=== PATIENT | female | born 1965 | race Caucasian/White ===

== ENCOUNTER → 2017-11-23 | Day surgery (SDC) | payer BC ==
[2017-11-23 13:36] VITALS: RESP 16; BMI 35.2
[2017-11-23 15:05] VITALS: BP 128/75; PULSE 80; TEMP 98
--- NOTE | 2017-11-23 15:29 | MM ---
EXAMINATION TYPE: MG stereo VAD BX LT DATE OF EXAM: 11/23/2017 COMPARISON: Prior diagnostic mammogram dated 11/16/2017 CLINICAL HISTORY: 1.1 cm group of indeterminate calcifications within the upper outer quadrant of the left breast at middle depth for which stereotactic biopsy was recommended. TECHNIQUE: Stereotactic guided core biopsy of left breast. FINDINGS: The procedure of stereotactic guided core biopsy was explained to the patient. Benefits, alternatives, and risks were discussed. An informed consent was then obtained. A preprocedural timeout was performed. The shortness pathway for biopsy was chosen. Shortness pathway was lateral medial approach. . Targeted calcifications were localized. Subcutaneous tissues and skin surface was anesthetized with 10 cc of 1% lidocaine without epinephrine. The core biopsy needle was advanced to the appropriate calculated coordinates an additional 10 cc of 1% lidocaine with epinephrine was utilized to anesthetize the deeper tissues at the site of biopsy. Subsequently a vacuum assisted biopsy gun was used to obtain 12 core samples. After confirmation of calcifications within the specimen radiograph a T-shaped biopsy marker was placed. The patient tolerated the procedure well without any immediate complication. The patient was kept in the radiology department for short stay after the procedure and then discharged home in stable condition. Post biopsy mammogram shows the clip to appear in satisfactory position relative to the targeted area of concern on the preprocedure images. IMPRESSION: SUCCESSFUL, UNCOMPLICATED STEREOTACTIC GUIDED CORE BIOPSY OF A 1.1 CM GROUP OF INTERMEDIATE SUSPICION CALCIFICATIONS WITHIN THE UPPER OUTER QUADRANT OF THE LEFT BREAST, FULL PATHOLOGY RESULTS TO FOLLOW. Pathology Results: High Risk BREAST, LEFT SITE A, CORE BIOPSY: PENDING CONSULTATION, SEE ADDENDUM/FINAL DIAGNOSIS. ADDENDUM REPORT BREAST, LEFT, SITE A, STEREOTACTIC CORE BIOPSY ([id number]; 11/23/2017): SMALL INTRADUCTAL PAPILLOMA (LESS THAN 0.1 CM IN GREATEST DIMENSION) IN A BACKGROUND OF FIBROCYSTIC CHANGES INCLUDING COLUMNAR CELL CHANGE. CALCIFICATIONS ARE PRESENT WITHIN BENIGN DUCTS. Recommendation Surgical consult. Consider open biopsy. [facility]
== END ==
LOC: RADMAMWWP 13:17
PROVIDERS: ATTEND Surgery
DX: D24.2 Benign neoplasm of left breast (principal); Z91.09 Other allergy status, other than to drugs and biological substances; R92.1 Mammographic calcification found on diagnostic imaging of breast; Z91.030 Bee allergy status; Z91.041 Radiographic dye allergy status; Z91.012 Allergy to eggs; Z88.5 Allergy status to narcotic agent; Z91.013 Allergy to seafood
CPT/HCPCS: 88305; 19081; A4648; J2001

== ENCOUNTER → 2018-06-20 | Outpatient (CLI) | payer BC ==
--- NOTE | 2018-06-20 12:43 | MM ---
Reason for exam: follow-up at short interval from prior study. Last mammogram was performed 7 months ago. History: Patient is postmenopausal and has history of high-risk lesion on a previous biopsy at age 52. Family history of premenopausal breast cancer in paternal aunt at age 40 and premenopausal breast cancer in maternal aunt at age 42. High risk MG stereo VAD BX LT of the left breast, November 23, 2017. Physical Findings: Nurse did not find any significant physical abnormalities on exam. MG 3D Diag Mammo W/Cad LT CC and MLO view(s) were taken of the left breast. Prior study comparison: November 16, 2017, left breast MG 3d work up w/cad LT. November 08, 2017, bilateral MG 3d screening mammo w/cad. The breast tissue is heterogeneously dense. This may lower the sensitivity of mammography. Finding: There is a typically benign circumscribed round oval masses in the left breast, similar to priors. No suspicious abnormality. Upper outer quadrant left biopsy marker noted. These results were verbally communicated with the patient and result sheet given to the patient on 06/20/18. ASSESSMENT: Benign, BI-RAD 2 RECOMMENDATION: Follow-up diagnostic mammogram of both breasts in 6 months.
--- NOTE | 2018-06-20 12:45 | USB ---
Reason for exam: follow-up at short interval from prior study. History: Patient is postmenopausal and has history of high-risk lesion on a previous biopsy at age 52. Family history of premenopausal breast cancer in paternal aunt at age 40 and premenopausal breast cancer in maternal aunt at age 42. High risk MG stereo VAD BX LT of the left breast, November 23, 2017. US Breast LT Left complete breast ultrasound includes all four quadrants, the retroareolar region and axilla. Finding demonstrates a 0.7 x 0.2 x 0.7cm mixed, stable, benign lesion at 1 o'clock, a 1.4 x 0.5 x 1.5cm cystic cluster at 4 o'clock, a 0.7 x 0.5 x 0.7cm cystic cluster at 4 o'clock, a 0.8 x 0.5 x 0.8cm cystic cluster at 5 o'clock and a 0.7 x 0.6 x 1.0cm cystic, benign lesion at 6 o'clock. These results were verbally communicated with the patient and result sheet given to the patient on 06/20/18. ASSESSMENT: Probably benign, BI-RAD 3 RECOMMENDATION: Ultrasound of the left breast in 6 months. (lower inner quadrant)
== END | disposition home or self-care (01) ==
LOC: RADMAMWWP 08:55
PROVIDERS: ATTEND Surgery
DX: R92.8 Other abnormal and inconclusive findings on diagnostic imaging of breast (principal)
CPT/HCPCS: 77061; 77065

== ENCOUNTER → 2018-07-10 | Outpatient (CLI) | payer BC ==
[2018-07-10 09:57] LABS: Basophils % (A) 0 %; Eosinophils # (A) 0.2 k/uL (0-0.7); Eosinophils % (A) 3 %; HCT 44.5 % (34.0-46.0); HGB 14.7 gm/dL (11.4-16.0); Lymphocytes # (A) 2.1 k/uL (1.0-4.8); Lymphocytes % (A) 25 %; MCH 29.5 pg (25.0-35.0); MCV 89.4 fL (80.0-100.0); Mean Platelet Volume 7.3; Monocytes # (A) 0.5 k/uL (0-1.0); Monocytes % (A) 6 %; Neutrophils # (A) 5.4 k/uL (1.3-7.7); Neutrophils % (A) 66 %; Platelet Count 352 k/uL (150-450); RBC 4.98 m/uL (3.80-5.40); RDW 13.1 % (11.5-15.5); WBC 8.2 k/uL (3.8-10.6)
== END | disposition home or self-care (01) ==
LOC: LABPAT 09:09
PROVIDERS: ATTEND Orthopaedic Surgery
DX: Z01.818 Encounter for other preprocedural examination (principal); Z01.812 Encounter for preprocedural laboratory examination; G56.01 Carpal tunnel syndrome, right upper limb
CPT/HCPCS: 36415; 80051; 85025; 93005

== ENCOUNTER 2018-07-12 09:40 | Day surgery (SDC) | payer BC ==
[2018-07-04 15:10] VITALS: BMI 37.4
--- NOTE | 2018-07-11 16:01 | HP ---
HISTORY AND PHYSICAL REASON FOR ADMISSION: Surgery scheduled for 07/12/18. Gabby Garland is a 53-year-old patient seen with progressive right carpal tunnel syndrome. Treatment options were discussed. She elected to proceed with decompression of right median nerve. Consent was obtained. PAST MEDICAL HISTORY: Hypothyroidism. PAST SURGICAL HISTORY: Noncontributory. MEDICATIONS: Levothyroxine. ALLERGIES: MORPHINE. SOCIAL HISTORY: Patient denies current tobacco use. PHYSICAL EXAMINATION: Physical evaluation of the right hand: There is a positive carpal compression, carpal Tinel's causing numbness and tingling to the median nerve distribution. She is nontender along the A1 adrianne site. She had decreased sensation distally along the median nerve distribution. There is good pulses and good perfusion distally. Radiographs were obtained right hand revealing some osteoarthritic changes. EMG right upper extremity revealed carpal tunnel syndrome. IMPRESSION: 1. Right carpal tunnel syndrome. 2. Hypothyroidism. PLAN: Decompression right median nerve. Surgery scheduled for 07/12/2018. MMODL / IJN: [id number] /
[~2018-07-12 09:40] MED LIST: DEXAMETHASONE SOD PHOSPHATE 10 MG/ML 1 ML VIAL IV ONE; LACTATED RINGERS 1,000 ML IV SCH; LIDOCAINE 1% 20 ML VIAL (10MG/ML) FOR IV START INTRADERMA PRN; MIDAZOLAM 2 MG/2 ML VIAL IV PRN; ONDANSETRON 4 MG/2 ML VIAL IVP ONE; ceFAZolin IN SWFI 2 GM/20 ML SYRINGE IVP ONE
[2018-07-12 10:02] VITALS: TEMP 98
[2018-07-12] MEDS ORDERED: LACTATED RINGERS 1,000 ML IV ONE (10:23)
[2018-07-12] MEDS ORDERED: fentaNYL (PF) 50 MCG/ML 2 ML AMP ONE (10:45)
[2018-07-12] MEDS ORDERED: MIDAZOLAM 2 MG/2 ML VIAL ONE (10:45)
[2018-07-12] MEDS ORDERED: PROPOFOL 10 MG/ML 20 ML VIAL IV ONE (10:45)
[2018-07-12] MEDS ORDERED: LIDOCAINE 1% INJ 10MG/ML (20 ML MDV) ONE (10:45)
[2018-07-12] MEDS ORDERED: ROPIVACAINE 5 MG/ML 30 ML VIAL MISCELLANE ONE (11:01)
--- NOTE | 2018-07-12 11:30 | P.OP ---
Date of Procedure: 07/12/18 Preoperative Diagnosis: Right carpal tunnel syndrome Postoperative Diagnosis: Right carpal tunnel syndrome Procedure(s) Performed: Decompression right median nerve Anesthesia: AMBER local Surgeon: Jere Clay Estimated Blood Loss (ml): 0 Pathology: none sent Condition: stable Disposition: PACU Indications for Procedure: 53-year-old patient seen with symptomatic right carpal tunnel syndrome. After treatment options were discussed, she elected to proceed with decompression. Operative Findings: see description of procedure Description of Procedure: Patient was taken to the operative suite. Patient underwent anesthetic by the primary a seizure. Well-padded tourniquet placed proximal right extremity. Right upper extremity was prepped and draped in the normal sterile orthopedic fashion. The proposed incision site was infiltrated with 10 mL half percent plain ropivacaine. When good local analgesia was noted the extremity was elevated and tourniquet insufflated to 250. I made an incision beginning at the distal volar wrist crease and extended distally approximately 3 cm in line with the fourth metacarpal sharply through skin. Dissection was taken down through the palmar fascia to the transverse carpal ligament. I now incised the transcarpal ligament. I completed the release proximally and distally blunt Metzenbaums. We had good release of transcarpal ligament. The wound was irrigated. Hemostasis achieved with electrocautery. There was good hemostasis. The skin margins were proximal nylon suture. Sterile dressings were applied. Tourniquet was released with immediate capillary refill of all digits noted. Sterile webril and Driss bandage were applied. Patient was now awakened, transferred to a bed and recovery stable condition.
[2018-07-12 11:38] VITALS: BP 122/79; PULSE 82; RESP 16
== END 2018-07-12 12:00 | disposition home or self-care (01) ==
LOC: OR 09:40
PROVIDERS: ATTEND Orthopaedic Surgery
DX: G56.01 Carpal tunnel syndrome, right upper limb (principal); E03.9 Hypothyroidism, unspecified; F17.210 Nicotine dependence, cigarettes, uncomplicated; K21.9 Gastro-esophageal reflux disease without esophagitis; Z88.5 Allergy status to narcotic agent; Z91.041 Radiographic dye allergy status; Z91.048 Other nonmedicinal substance allergy status; Z79.1 Long term (current) use of non-steroidal anti-inflammatories (NSAID); Z79.899 Other long term (current) drug therapy
CPT/HCPCS: 64721; J2250; J1100; J2405; J2001; J3010; J2795; J2704; J0690

== ENCOUNTER 2018-09-25 09:09 | Emergency (ER) | payer BC ==
[2018-09-25] MEDS ORDERED: ONDANSETRON 4 MG/2 ML VIAL IVP STA (09:45)
[2018-09-25] MEDS ORDERED: SODIUM CHLORIDE 0.9% 1,000 ML IV STA ×2 (09:45)
[2018-09-25] MEDS ORDERED: ACETAMINOPHEN IV (For NPO) 1,000 MG in EMPTY BAG 1 BAG IVPB ONE (10:00)
[2018-09-25 10:50] LABS: Basophils % (A) 0 %; Eosinophils # (A) 0.1 k/uL (0-0.7); Eosinophils % (A) 1 %; HCT 45.4 % (34.0-46.0); HGB 14.6 gm/dL (11.4-16.0); Lymphocytes # (A) 2.7 k/uL (1.0-4.8); Lymphocytes % (A) 28 %; MCHC 32.1 g/dL (31.0-37.0); MCV 90.5 fL (80.0-100.0); Mean Platelet Volume 6.5; Monocytes # (A) 0.4 k/uL (0-1.0); Monocytes % (A) 4 %; Neutrophils # (A) 6.5 k/uL (1.3-7.7); Neutrophils % (A) 66 %; Platelet Count 379 k/uL (150-450); RBC 5.02 m/uL (3.80-5.40); RDW 13.2 % (11.5-15.5); WBC 9.9 k/uL (3.8-10.6)
[2018-09-25 10:53] LABS: Appearance,Urine Clear (Clear); Bilirubin,Urine Negative (Negative); Blood,Urine Negative (Negative); Color,Urine Light Yellow; Glucose,Urine (UA) Negative (Negative); Ketones,Urine Negative (Negative); Leukocyte Esterase,Urine Negative (Negative); Nitrite,Urine Negative (Negative); Protein,Urine Negative (Negative); Specific Gravity,Urine 1.006 (1.001-1.035); Urobilinogen,Urine <2.0 mg/dL (<2.0)
[2018-09-25 10:58] LABS: ALT 30 U/L (9-52); AST 16 U/L (14-36); Albumin 3.9 g/dL (3.5-5.0); Alkaline Phosphatase 104 U/L (38-126); Amylase 31 U/L (30-110); Anion Gap 6 mmol/L; Blood Urea Nitrogen 16 mg/dL (7-17); Calcium 9.5 mg/dL (8.4-10.2); Carbon Dioxide 28 mmol/L (22-30); Chloride 106 mmol/L (98-107); Glucose 123 mg/dL (74-99); Lipase 73 U/L (23-300); Potassium 4.5 mmol/L (3.5-5.1); Sodium 140 mmol/L (137-145); Total Bilirubin 0.4 mg/dL (0.2-1.3)
[2018-09-25] MEDS ORDERED: diphenhydrAMINE 50 MG/ML 1 ML VIAL IVP STA (11:13)
[2018-09-25] MEDS ORDERED: methylPREDNISolone SOD SUCCI 125 MG/2 ML VIAL IV STA (11:13)
[2018-09-25] MEDS ORDERED: FAMOTIDINE 20 MG/2 ML VIAL IV STA (11:14)
[2018-09-25] MEDS ORDERED: HYDROcodone/APAP 5-325MG 1 EACH TAB PO STA ×2 (12:10→15:27)
--- NOTE | 2018-09-25 12:35 | CT ---
EXAMINATION TYPE: CT abdomen pelvis w con DATE OF EXAM: 09/25/2018 COMPARISON: NONE HISTORY: 53-year-old female with history of GERD. Pt complaining of LLQ pain starting this morning, w ith nausea. TECHNIQUE: Contiguous axial scanning of the abdomen and pelvis following administration of 100 ml Iso khang 300 IV contrast. Delayed images through the kidneys and coronal/sagittal reconstructions perform ed. CT DLP: 1197.7 mGycm Automated exposure control for dose reduction was used. FINDINGS: Heart normal size without pericardial effusion. Scattered calcified granulomas in the visualized lowe r lungs with mild dependent atelectasis. Liver measures mildly enlarged at 19.2 cm. No focal lesion seen. Portal venous system is patent. Bile duct borderline to mildly dilated at 8 mm. There is a small diverticulum of the second portion o f the duodenum projecting into the pancreatic head region. Gallbladder borderline hydropic at 4.0 cm wide with a few gallstones measuring up to 1.7 cm Right adrenal gland, kidneys, spleen, and pancreas appear within normal limits. Some nodular thickeni ng of the left adrenal gland may represent underlying adrenal adenoma. No dilated small bowel, free fluid, or free air. Borderline sized 9 mm right paramedian mid abdominal retroperitoneal or mesenteric lymph node is noted on axial image 46. Otherwise, no mesenteric or ret roperitoneal lymphadenopathy. Normal appendix. There is mild stool burden in the right side of colon. Mild diverticulosis from the mid descending colon to the mid sigmoid. No pericolonic inflammatory change seen. Question prior hysterectomy with a large septated cystic pelvic mass measuring 16.4 cm AP by 10.2 cm wide by 8.4 cm craniocaudal, refer to axial image 64 and sagittal image 72. Possibly from the left ov koffi as what appears to be the right ovary is seen on axial image 64. Some slight left lateral wall so ft tissue thickening, coronal image 64 and axial image 68. No abnormal fluid collection otherwise see n in the pelvis or pelvic lymphadenopathy. Bones: Mild multilevel degenerative disc disease. IMPRESSION: 1. CORRELATE WITH SURGICAL HISTORY FOR PRIOR HYSTERECTOMY. THERE IS A LARGE CYSTIC MASS MEASURING UP TO 16.4 CM FILLING THE PELVIS POSSIBLY OF LEFT OVARIAN ORIGIN. SUGGESTION OF INTERNAL SEPTATION AND E ITHER SOME LEFT LATERAL MURAL-BASED SOFT TISSUE THICKENING OR FLATTENED OVARIAN PARENCHYMA. CYSTIC EP ITHELIAL OVARIAN NEOPLASM IS IN THE DIFFERENTIAL. PELVIC ULTRASOUND CAN ATTEMPT FURTHER CHARACTERIZAT ION. SURGICAL REFERRAL IS RECOMMENDED. 2. BORDERLINE HYDROPIC GALLBLADDER AT 4.0 CM WIDE WITH CHOLELITHIASIS. GALLBLADDER DISTENTION MAY REL ATE TO FASTING STATE. CLINICALLY CORRELATE. IF RIGHT UPPER QUADRANT PAIN OR CONCERN FOR EARLY ACUTE C HOLECYSTITIS, FOLLOW-UP ULTRASOUND OR HIDA SCAN. 3. MILD SCATTERED LEFT-SIDED COLONIC DIVERTICULOSIS. NO EVIDENCE FOR ACUTE DIVERTICULITIS.
--- NOTE | 2018-09-25 13:43 | US ---
EXAMINATION TYPE: US pelvis complete transvag DATE OF EXAM: 09/25/2018 COMPARISON: ct CLINICAL HISTORY: Pain. TECHNIQUE: Transvaginal (TV) and Transabdominal (TA) . Transabdominal sonographic images of the pel vis were acquired. Transabdominal sonographic images were medically necessary to better assess the f ollowing anatomy: ovary Date of LMP: patient had hysterectomy 10-15 years prior EXAM MEASUREMENTS: Uterus: Surgically absent Endometrial Stripe: Surgically absent Right Ovary: not positively identified Left Ovary: not positively identified 1. Uterus: Surgically absent 2. Endometrium: Surgically absent 3. Posterior cul-de-sac: wnl Midline there is a large cystic structure, this appears more right by ultrasound, although right ovar y is not visualized by ultrasound. Cystic structure measures 16.5 x 7.9 x 10.1cm IMPRESSION: 1. Large nonspecific midline cystic structure within the pelvis may reflect a paraAdnexal cyst. Cysti c neoplasm not excluded. Consider direct visualization or short-term follow-up.
--- NOTE | 2018-09-25 14:17 | ED ---
Abdominal Pain HPI <Reza Torrez - Last Filed: 09/25/18 15:22> - General Source: patient, RN notes reviewed, old records reviewed Mode of arrival: ambulatory Limitations: no limitations <Jose Lewis - Last Filed: 09/25/18 17:10> - General Chief Complaint: Abdominal Pain Stated Complaint: Left lower abd pain - History of Present Illness Initial Comments: 53-year-old female patient presents to ED with left lower quadrant abdominal pain. Patient states that the pain began today at approximately 7 AM it began as a crampy achy pain since progressed to a sharp stabbing pain. The patient tried taking Advil for the pain, without relief. The patient has not taken any other palliative measures. Patient additionally complained of nausea without emesis. Denies all other complaints. Patient denies fever or chills or diarrhea. Systemic: Pt denies fatigue, myalgia, fever/chills, rash. Pt denies weakness, night sweats, weight loss. Neuro: Pt denies headache, visual disturbances, syncope or pre-syncope. HEENT: Pt denies ocular discharge or irritation, otalgia, rhinorrhea, pharyngitis or notable lymphadenopathy. Cardiopulmonary: Pt denies chest pain, SOB, heart palpitations, dyspnea on exertion. Abdominal/GI: Pt denies vomiting, diarrhea : Pt denies dysuria, burning w/ urination, frequency/urgency. Denies new onset urinary or bowel incontinence. MSK: Pt denies myalgia, loss of strength or function in extremities. (Jose Lewis) - Related Data Home Medications Medication Instructions Recorded Confirmed Levothyroxine Sodium [Synthroid] 50 mcg PO DAILY 04/23/15 09/25/18 Venlafaxine HCl [Venlafaxine HCl 75 mg PO DAILY 04/23/15 09/25/18 ER] Naproxen 500 mg PO DAILY 11/16/17 09/25/18 Benzoyl Peroxide [Benzac AC Wash] 1 applic TOPICAL BID 09/25/18 09/25/18 Fluocinonide 0.05% [Lidex 0.05% 1 applic TOPICAL BID 09/25/18 09/25/18 cream] Hydrocortisone Cream 1 applic TOPICAL BID 09/25/18 09/25/18 [Hydrocortisone 2.5% Cream] Allergies Allergy/AdvReac Type Severity Reaction Status Date / Time bee pollen Allergy Anaphylaxis Verified 09/25/18 10:00 Iodinated Contrast- Oral and Allergy Rash/Hives Verified 09/25/18 10:00 IV Dye [Iodinated Contrast Media - IV Dye] morphine Allergy Anaphylaxis Verified 09/25/18 10:00 nickel Allergy Rash/Hives Verified 09/25/18 10:00 Pepper Allergy Unknown Verified 09/25/18 10:00 shellfish derived [Shellfish] Allergy Dyspnea Verified 09/25/18 10:00 tomato Allergy Unknown Verified 09/25/18 10:00 adhesive AdvReac skin Verified 09/25/18 10:00 irritation Egg Derived AdvReac Abdominal Verified 09/25/18 10:00 Pain Review of Systems ROS Other: All systems not noted in ROS Statement are negative. <Reza Torrez - Last Filed: 09/25/18 15:22> ROS Other: All systems not noted in ROS Statement are negative. <Jose Lewis - Last Filed: 09/25/18 17:10> ROS Statement: Those systems with pertinent positive or pertinent negative responses have been documented in the HPI. Past Medical History Past Medical History: GERD/Reflux, Osteoarthritis (OA), Skin Disorder, Thyroid Disorder Additional Past Medical History / Comment(s): eczema, hx. heart murmur as a child, hiatal hernia History of Any Multi-Drug Resistant Organisms: None Reported Past Surgical History: Section, Hysterectomy, Orthopedic Surgery Additional Past Surgical History / Comment(s): neck fusion, right shoulder surg. , right knee sx Past Anesthesia/Blood Transfusion Reactions: No Reported Reaction Past Psychological History: Depression Smoking Status: Current every day smoker Past Alcohol Use History: None Reported Past Drug Use History: None Reported - Past Family History Mother Family Medical History: Cancer <Jose Lewis - Last Filed: 09/25/18 17:10> General Exam <Reza Torrez - Last Filed: 09/25/18 15:22> Limitations: no limitations <Jose Lewis - Last Filed: 09/25/18 17:10> - General Exam Comments Initial Comments: Constitutional: NAD, AOX3, Pt has pleasant affect. HEENT: NC/AT, trachea midline, neck supple, no lymphadenopathy. Posterior pharynx non erythematous, without exudates. External ears appear normal, without discharge. Mucous membranes moist. Eyes PERRLA, EOM intact. There is no scleral icterus. No pallor noted. Cardiopulmonary: RRR, no murmurs, rubs or gallops, no JVD noted. Lungs CTAB in anterior and posterior baker. No peripheral edema. Abdominal exam: Abdomen soft and non-distended. Bowel sounds active in LLQ. Abdomen tender to palpation in LLQ, no ecchymosis, no cullens or latif head sign, no tenderness at mcburneys point. [place] sign negative. No hepatosplenomegaly. Neuro: CN II-XII grossly intact. (Jose Lewis) Vital Signs 09/25/18 09/25/18 09/25/18 09:15 14:07 14:08 Temperature 98.1 F 97.4 F L Pulse Rate 88 71 Respiratory 20 16 Rate Blood Pressure 145/73 135/72 O2 Sat by Pulse 98 92 L 95 Oximetry Medical Decision Making - Lab Data Result diagrams: 09/25/18 10:20 09/25/18 10:20 <Reza Torrez - Last Filed: 09/25/18 15:22> - Lab Data Result diagrams: 09/25/18 10:20 09/25/18 10:20 <Jose Lewis - Last Filed: 09/25/18 17:10> - Medical Decision Making Patient reevaluated by myself, Dr. Torrez. Patient resting comfortably in bed however still complains of some discomfort. Patient does have suprapubic tenderness, mild to moderate. CT and ultrasound reports reviewed. Patient is updated. Case was discussed with Dr. Davila, covering for Dr. Bah with the patient has previously seen. She does recommend transfer to tertiary care facility, likely [facility] or [facility] (Reza Torrez) 53-year-old female patient presented to emergency department with acute left lower quadrant pain, which began earlier in day. Physical exam displayed tenderness to the left lower quadrant. Investigations of intra-abdominal pathology were conducted. These included labs: CBC, CMP, amylase/lipase, lactic acid - none of which were indicative of acute pathology. Additionally, a EKG was performed. This EKG displayed normal sinus rhythm, and was not worrisome for acute ischemia. A CT abdomen and pelvis was performed, which displayed a large cystic mass measuring up to 16.4 cm in the pelvis. The CT also displayed a borderline borderline hydropic gallbladder, clinical correlation not concerning for cholecystitis. CT additionally displayed mild scattered left-sided colonic diverticulosis, no diverticulitis. A pelvic ultrasound was performed which confirmed the pelvic cystic mass. Decision was made to transfer patient to [facility]. (Jose Lewis) - Lab Data Lab Results 09/25/18 09/25/18 09/25/18 Range/Units 10:20 10:20 10:20 WBC 9.9 (3.8-10.6) k/uL RBC 5.02 (3.80-5.40) m/uL Hgb 14.6 (11.4-16.0) gm/dL Hct 45.4 (34.0-46.0) % MCV 90.5 (80.0-100.0) fL MCH 29.0 (25.0-35.0) pg MCHC 32.1 (31.0-37.0) g/dL RDW 13.2 (11.5-15.5) % Plt Count 379 (150-450) k/uL Neutrophils % 66 % Lymphocytes % 28 % Monocytes % 4 % Eosinophils % 1 % Basophils % 0 % Neutrophils # 6.5 (1.3-7.7) k/uL Lymphocytes # 2.7 (1.0-4.8) k/uL Monocytes # 0.4 (0-1.0) k/uL Eosinophils # 0.1 (0-0.7) k/uL Basophils # 0.0 (0-0.2) k/uL Sodium 140 (137-145) mmol/L Potassium 4.5 (3.5-5.1) mmol/L Chloride 106 (98-107) mmol/L Carbon Dioxide 28 (22-30) mmol/L Anion Gap 6 mmol/L BUN 16 (7-17) mg/dL Creatinine 0.72 (0.52-1.04) mg/dL Est GFR (CKD-EPI)AfAm >90 (>60 ml/min/1.73 sqM) Est GFR (CKD-EPI)NonAf >90 (>60 ml/min/1.73 sqM) Glucose 123 H (74-99) mg/dL Plasma Lactic Acid Adal 0.9 (0.7-2.0) mmol/L Calcium 9.5 (8.4-10.2) mg/dL Total Bilirubin 0.4 (0.2-1.3) mg/dL AST 16 (14-36) U/L ALT 30 (9-52) U/L Alkaline Phosphatase 104 (38-126) U/L Total Protein 7.0 (6.3-8.2) g/dL Albumin 3.9 (3.5-5.0) g/dL Amylase 31 (30-110) U/L Lipase 73 (23-300) U/L Urine Color Urine Appearance (Clear) Urine pH (5.0-8.0) Ur Specific Anderson (1.001-1.035) Urine Protein (Negative) Urine Glucose (UA) (Negative) Urine Ketones (Negative) Urine Blood (Negative) Urine Nitrite (Negative) Urine Bilirubin (Negative) Urine Urobilinogen (<2.0) mg/dL Ur Leukocyte Esterase (Negative) Urine HCG, Qual (Not Detectd) 09/25/18 09/25/18 Range/Units 10:20 10:20 WBC (3.8-10.6) k/uL RBC (3.80-5.40) m/uL Hgb (11.4-16.0) gm/dL Hct (34.0-46.0) % MCV (80.0-100.0) fL MCH (25.0-35.0) pg MCHC (31.0-37.0) g/dL RDW (11.5-15.5) % Plt Count (150-450) k/uL Neutrophils % % Lymphocytes % % Monocytes % % Eosinophils % % Basophils % % Neutrophils # (1.3-7.7) k/uL Lymphocytes # (1.0-4.8) k/uL Monocytes # (0-1.0) k/uL Eosinophils # (0-0.7) k/uL Basophils # (0-0.2) k/uL Sodium (137-145) mmol/L Potassium (3.5-5.1) mmol/L Chloride (98-107) mmol/L Carbon Dioxide (22-30) mmol/L Anion Gap mmol/L BUN (7-17) mg/dL Creatinine (0.52-1.04) mg/dL Est GFR (CKD-EPI)AfAm (>60 ml/min/1.73 sqM) Est GFR (CKD-EPI)NonAf (>60 ml/min/1.73 sqM) Glucose (74-99) mg/dL Plasma Lactic Acid Adal (0.7-2.0) mmol/L Calcium (8.4-10.2) mg/dL Total Bilirubin (0.2-1.3) mg/dL AST (14-36) U/L ALT (9-52) U/L Alkaline Phosphatase (38-126) U/L Total Protein (6.3-8.2) g/dL Albumin (3.5-5.0) g/dL Amylase (30-110) U/L Lipase (23-300) U/L Urine Color Light Yellow Urine Appearance Clear (Clear) Urine pH 7.0 (5.0-8.0) Ur Specific Anderson 1.006 (1.001-1.035) Urine Protein Negative (Negative) Urine Glucose (UA) Negative (Negative) Urine Ketones Negative (Negative) Urine Blood Negative (Negative) Urine Nitrite Negative (Negative) Urine Bilirubin Negative (Negative) Urine Urobilinogen <2.0 (<2.0) mg/dL Ur Leukocyte Esterase Negative (Negative) Urine HCG, Qual Not Detected (Not Detectd) - EKG Data EKG Comments: Normal sinus rhythm. Mild amount of artifact present. Ventricular rate 77, MD interval 146, QRS 96, QT 414, QTC 468. Not concerning for acute ischemia. ( Jose Lewis) Disposition <Reza Torrez - Last Filed: 09/25/18 15:22> Is patient prescribed a controlled substance at d/c from ED?: No - Out of Hospital Transfer - Req. Specs Out of Hospital Transfer - Requested Specifics: Other Non-Acute ([facility]) <Jose Lewis - Last Filed: 09/25/18 17:10> Clinical Impression: Pelvic cyst Disposition: OTHER INSTITUTION NOT DEFINED Condition: Good Instructions: Pelvic Pain in Women (ED) Additional Instructions: Pt transferred to [facility] to continue acute care. Referrals: Ulises León DO [Primary Care Provider] - 1-2 days
[2018-09-25] MEDS ORDERED: NICOTINE 14MG/24HR PATCH TRANSDERM STA (16:27)
[2018-09-25 17:07] VITALS: BP 159/84; TEMP 97.6
[2018-09-25 18:38] VITALS: PULSE 80; RESP 16
== END 2018-09-25 18:55 | disposition other institution (70) ==
LOC: EC 09:09
DX: N94.89 Other specified conditions associated with female genital organs and menstrual cycle (principal); K57.90 Diverticulosis of intestine, part unspecified, without perforation or abscess without bleeding; M19.90 Unspecified osteoarthritis, unspecified site; E07.9 Disorder of thyroid, unspecified; F32.9 Major depressive disorder, single episode, unspecified; F17.200 Nicotine dependence, unspecified, uncomplicated; Z90.710 Acquired absence of both cervix and uterus; Z79.899 Other long term (current) drug therapy; Z79.1 Long term (current) use of non-steroidal anti-inflammatories (NSAID); Z79.52 Long term (current) use of systemic steroids; Z91.048 Other nonmedicinal substance allergy status; Z91.041 Radiographic dye allergy status; Z88.5 Allergy status to narcotic agent; Z91.018 Allergy to other foods; Z91.013 Allergy to seafood; Z91.012 Allergy to eggs
CPT/HCPCS: 99285; 96365; 96375 ×4; 96361 ×7; 93005; 36415; 80053; 82150; 83605; 83690; 85025; 81003; 81025; 76856; 76830; 74177; S4990; J1200; J2930; J2405; J0131; Q9967

== ENCOUNTER → 2019-01-12 | Outpatient (CLI) | payer BC ==
--- NOTE | 2019-01-12 14:29 | MM ---
Reason for exam: additional evaluation requested from prior study. Last mammogram was performed 7 months ago. History: Patient is postmenopausal and has history of high-risk lesion on a previous biopsy at age 52. Family history of premenopausal breast cancer in paternal aunt at age 40 and premenopausal breast cancer in maternal aunt at age 42. High risk MG stereo VAD BX LT of the left breast, November 23, 2017. Physical Findings: Nurse did not find any significant physical abnormalities on exam. MG 3D Diag Mammo W/Cad ANNABELLA Bilateral CC and MLO view(s) were taken. Prior study comparison: June 20, 2018, left breast MG 3d diag mammo w/cad LT. November 16, 2017, left breast MG 3d work up w/cad LT. July 17, 2015, mammogram, performed at [facility]. The breast tissue is heterogeneously dense. This may lower the sensitivity of mammography. There are round, oval, circumscribed masses waxing and waning on the left dating back to 2014. No suspicious abnormality. No significant new findings when compared with previous films. These results were verbally communicated with the patient and result sheet given to the patient on 01/12/19. ASSESSMENT: Benign, BI-RAD 2 RECOMMENDATION: Routine screening mammogram of both breasts in 1 year.
--- NOTE | 2019-01-12 14:32 | USB ---
Reason for exam: follow-up at short interval from prior study. History: Patient is postmenopausal and has history of high-risk lesion on a previous biopsy at age 52. Family history of premenopausal breast cancer in paternal aunt at age 40 and premenopausal breast cancer in maternal aunt at age 42. High risk MG stereo VAD BX LT of the left breast, November 23, 2017. US Breast LT Left complete breast ultrasound includes all four quadrants, the retroareolar region and axilla. Finding demonstrates a 0.6 x 0.5 x 0.4cm mixed lesion at 3 o'clock, a 0.8 x 0.4 x 0.4cm mixed lesion at 5 o'clock, a 1.5 x 1.0 x 0.4cm mixed lesion at 5 o'clock, a 0.4 x 0.5 x 0.6cm cystic lesion at 5 o'clock and a 0.6 x 0.7 x 0.5cm cystic lesion at 6 o'clock. Similar to multiple prior exams compared back to 08/16/07. These results were verbally communicated with the patient and result sheet given to the patient on 01/12/19. ASSESSMENT: Benign, BI-RAD 2 RECOMMENDATION: Routine screening mammogram of both breasts in 1 year.
== END | disposition home or self-care (01) ==
LOC: RADMAMWWP 12:38
PROVIDERS: ATTEND Surgery
DX: R92.8 Other abnormal and inconclusive findings on diagnostic imaging of breast (principal)
CPT/HCPCS: 77062; 77066

== ENCOUNTER → 2020-07-31 | Outpatient (CLI) | payer BC ==
--- NOTE | 2020-07-31 10:27 | MM ---
Reason for exam: additional evaluation requested from prior study. Last mammogram was performed 1 year and 7 months ago. History: Patient is postmenopausal and has history of high-risk lesion on a previous biopsy at age 52. Family history of premenopausal breast cancer in paternal aunt at age 40 and premenopausal breast cancer in maternal aunt at age 42. High risk MG stereo VAD BX LT of the left breast, November 23, 2017. Physical Findings: Nurse did not find any significant physical abnormalities on exam. MG 3D Diag Mammo W/Cad ANNABELLA Bilateral CC and MLO view(s) were taken. Prior study comparison: January 12, 2019, bilateral MG 3d diag mammo w/cad ANNABELLA. June 20, 2018, left breast MG 3d diag mammo w/cad LT. November 08, 2017, bilateral MG 3d screening mammo w/cad. There are scattered fibroglandular densities. Previous mammotome biopsy in the left breast. There is chronic nodularity bilaterally fluctuating especially medial left CC view. No significant changes when compared with prior studies. ASSESSMENT: Benign, BI-RAD 2 RECOMMENDATION: Routine screening mammogram of both breasts in 1 year.
--- NOTE | 2020-07-31 12:02 | XR ---
EXAMINATION TYPE: XR chest 2V DATE OF EXAM: 07/31/2020 COMPARISON: Right shoulder radiograph 12/02/2015. HISTORY: 55 year-old female shortness of breath and COPD TECHNIQUE: Frontal and lateral views FINDINGS: ACDF hardware. Heart normal size. Aorta and pulmonary vasculature are within normal limits. Numerous high density scattered following nodules suggesting either prior granulomatous disease or prior heale d viral or fungal infection. No consolidation or pleural effusion. Degenerative changes at the right shoulder. IMPRESSION: Numerous bilateral small calcified pulmonary nodules suggesting either prior granulomatous disease or prior healed viral or fungal infection. Otherwise, no acute process seen.
== END | disposition home or self-care (01) ==
LOC: RADMAMWWP 09:10
PROVIDERS: ATTEND Obstetrics & Gynecology
DX: R92.8 Other abnormal and inconclusive findings on diagnostic imaging of breast (principal); R91.8 Other nonspecific abnormal finding of lung field; J44.9 Chronic obstructive pulmonary disease, unspecified
CPT/HCPCS: 71046; 77062; 77066

== ENCOUNTER → 2020-09-13 | Outpatient (CLI) | payer BC ==
--- NOTE | 2020-09-13 10:25 | MR ---
EXAMINATION TYPE: MR brain wo con DATE OF EXAM: 09/13/2020 COMPARISON: NONE HISTORY: Loss of balance, weakness/numbness, memory loss TECHNIQUE: T1-weighted sagittal, T2, FLAIR, and diffusion axial, and T2 coronal coronal views of the brain are submitted. FINDINGS: There is no evidence of acute ischemia. The ventricles, basal cisterns, and sulci overlying the conv exities are consistent with the patient's age. There is no mass effect. Approximately 5 focal areas of abnormal signal scattered throughout the white matter bilaterally. All measure less than 5 mm and too small to characterize. None are diagnostic of a MS. Craniocervical junction maintained. Sella turcica has a normal appearance. No cerebellopontine angle mass. Orbits are symmetric in appearance. Minimal changes of chronic sinusi tis. IMPRESSION: 1. Minimal nonspecific white matter changes of questionable significance. Migraine headaches, hyperte nsion, remote tiny areas microvascular ischemia or demyelinating process not entirely excluded.
== END | disposition home or self-care (01) ==
LOC: RADMRIMAIN 09:28
PROVIDERS: ATTEND Psychiatry & Neurology Neurology
DX: I67.9 Cerebrovascular disease, unspecified (principal); G43.909 Migraine, unspecified, not intractable, without status migrainosus; I10 Essential (primary) hypertension
CPT/HCPCS: 70551

== ENCOUNTER → 2020-09-15 | Outpatient (CLI) | payer BC ==
[2020-09-15 14:49] LABS: Chol/HDL Ratio 3.86; LDL Cholesterol,Calculated 117.2 mg/dL (0.0-131.0); VLDL Calculation 22.8 mg/dL (5.00-40.00)
== END | disposition home or self-care (01) ==
LOC: LABWHC1 07:33
PROVIDERS: ATTEND Psychiatry & Neurology Neurology
DX: E78.5 Hyperlipidemia, unspecified (principal); R41.3 Other amnesia
CPT/HCPCS: 36415; 80061; 82607; 82747

== ENCOUNTER → 2021-08-14 | Outpatient (CLI) | payer BC ==
--- NOTE | 2021-08-15 04:32 | MR ---
EXAMINATION TYPE: MR shoulder LT wo con DATE OF EXAM: 08/14/2021 COMPARISON: None HISTORY: Left shoulder pain down arm and limited range of movement for 6 months. Multiplanar multiecho imaging of the left shoulder without contrast. There is narrowing of the glenohumeral joint space. The biceps tendon shows some surrounding fluid. T here is some thickening around the biceps tendon superiorly. There is some thickening and increased s ignal in the posterior aspect of the subscapularis tendon. There is 1 cm cystic area in the greater t uberosity of the humerus. There is 1 cm defect in the anterior aspect of the supraspinatus tendon wit h some retraction. There is narrowing of the subacromial joint space. There is spurring at the AC gaston nt and impingement on the supraspinatus tendon and muscle. The glenoid sol appear intact. There is a mild shoulder joint effusion. IMPRESSION: Rotator cuff tear on the anterior aspect of the supraspinatus tendon. There is subacromial joint spac e narrowing and impingement due to spurring at the AC joint. Osteoarthritic narrowing of the glenohum eral joint with small joint effusion. There is evidence for some biceps and subscapularis tendinitis.
== END | disposition home or self-care (01) ==
LOC: RADMRIMAIN 18:58
PROVIDERS: ATTEND Orthopaedic Surgery
DX: M75.112 Incomplete rotator cuff tear or rupture of left shoulder, not specified as traumatic (principal); M19.012 Primary osteoarthritis, left shoulder

== ENCOUNTER → 2021-09-14 | Outpatient (CLI) | payer BC ==
--- NOTE | 2021-09-16 08:03 | MM ---
Reason for exam: screening (asymptomatic). Last mammogram was performed 1 year and 1 month ago. History: Patient is postmenopausal and has history of high-risk lesion on a previous biopsy at age 52. Family history of premenopausal breast cancer in paternal aunt at age 40 and premenopausal breast cancer in maternal aunt at age 42. High risk MG stereo VAD BX LT of the left breast, November 23, 2017. Physical Findings: A clinical breast exam by your physician is recommended on an annual basis and results should be correlated with mammographic findings. MG 3D Screening Mammo W/Cad Bilateral CC and MLO view(s) were taken. Prior study comparison: July 31, 2020, bilateral MG 3d diag mammo w/cad ANNABELLA. January 12, 2019, bilateral MG 3d diag mammo w/cad ANNABELLA. November 08, 2017, bilateral MG 3d screening mammo w/cad. The breast tissue is heterogeneously dense. This may lower the sensitivity of mammography. Previous mammotome biopsy in the left breast. There is chronic nodularity in the left breast. No significant changes when compared with prior studies. ASSESSMENT: Benign, BI-RAD 2 RECOMMENDATION: Routine screening mammogram of both breasts in 1 year.
== END | disposition home or self-care (01) ==
LOC: RADMAMWWP 15:20
PROVIDERS: ATTEND Obstetrics & Gynecology
DX: Z12.31 Encounter for screening mammogram for malignant neoplasm of breast (principal)
CPT/HCPCS: 77063; 77067

== ENCOUNTER → 2021-09-29 | Outpatient (CLI) | payer BC ==
[2021-09-29 15:42] LABS: Basophils % (A) 0 %; Eosinophils # (A) 0.3 k/uL (0-0.7); Eosinophils % (A) 3 %; HCT 41.7 % (34.0-46.0); HGB 13.6 gm/dL (11.4-16.0); Lymphocytes # (A) 2.8 k/uL (1.0-4.8); Lymphocytes % (A) 28 %; MCH 29.9 pg (25.0-35.0); MCHC 32.6 g/dL (31.0-37.0); MCV 91.9 fL (80.0-100.0); Monocytes # (A) 0.4 k/uL (0-1.0); Monocytes % (A) 4 %; Neutrophils # (A) 6.2 k/uL (1.3-7.7); Neutrophils % (A) 63 %; Platelet Count 394 k/uL (150-450); RBC 4.54 m/uL (3.80-5.40); RDW 14.1 % (11.5-15.5); WBC 9.9 k/uL (3.8-10.6)
[2021-09-29 15:49] LABS: Potassium 4.7 mmol/L (3.5-5.1)
== END | disposition home or self-care (01) ==
LOC: LABPAT 15:00
PROVIDERS: ATTEND Orthopaedic Surgery
DX: Z01.812 Encounter for preprocedural laboratory examination (principal); M75.42 Impingement syndrome of left shoulder
CPT/HCPCS: 80051; 85025

== ENCOUNTER 2021-10-07 09:21 | Day surgery (SDC) | payer BC ==
[2021-10-06 09:50] VITALS: BMI 34.9
--- NOTE | 2021-10-06 20:08 | HP ---
HISTORY AND PHYSICAL DATE OF SURGERY: 10/07/2021 Gabby Garland is a 56-year-old patient seen with progressive left shoulder pain. We discussed options for treatment. She elected to proceed with left shoulder arthroscopy. Consent was obtained. PAST MEDICAL HISTORY: Hypothyroidism, gnp-tajeglq-pvavtmizb diabetes, gastroesophageal reflux disease. PAST SURGICAL HISTORY: section, rotator cuff repair, cervical fusion, hysterectomy. DAILY MEDICATIONS: Levothyroxine, naprosyn, Januvia, metformin, Prevacid. ALLERGIES: MORPHINE. SOCIAL HISTORY: She currently smokes cigarettes. PHYSICAL EVALUATION OF THE LEFT SHOULDER: Flexion is 110 degrees. Abduction is 80 degrees. External rotation is 35 degrees with pain and weakness. Tenderness along the anterolateral acromion and rotator cuff insertion site. Impingement sign is positive 80 degrees. Cross-body adduction sign is positive. Drop-arm sign is positive. Distal neurovascular exam is intact. IMAGING: Radiographs of the left shoulder revealed a type 2 acromion, evidence for cystic changes of the tuberosity. MRI of left shoulder revealed a retracted rotator cuff tear, impingement and acromioclavicular joint osteoarthritis. IMPRESSION: 1. Left shoulder impingement with rotator cuff tear. 2. Left shoulder acromioclavicular joint osteoarthritis. 3. Hypothyroidism. 4. Thl-kvvblyc-jtvjwoyya diabetes. PLAN: Left shoulder arthroscopy with subacromial decompression, arthroscopic rotator cuff repair, Harry procedure and debridement. MMODL / IJN: [id number] /
[~2021-10-07 09:21] MED LIST changes: -DEXAMETHASONE SOD PHOSPHATE 10 MG/ML 1 ML VIAL IV ONE; +DEXAMETHASONE SOD PHOSPHATE 4 MG/ML 1 ML VIAL IV ONE; +HYDROmorphone 0.5 MG/0.5 ML SYRINGE IVP PRN; +LIDOCAINE 1% (10MG/ML) FOR IV START INTRADERMA PRN; -LIDOCAINE 1% 20 ML VIAL (10MG/ML) FOR IV START INTRADERMA PRN; -ceFAZolin IN SWFI 2 GM/20 ML SYRINGE IVP ONE
[2021-10-07 10:12] LABS: Glucose,Whole Blood 139 mg/dL (75-99)
[2021-10-07] MEDS ORDERED: MIDAZOLAM 2 MG/2 ML VIAL IV ONE (10:24)
[2021-10-07] MEDS ORDERED: PROPOFOL 10 MG/ML 20 ML VIAL IV ONE (10:30)
[2021-10-07] MEDS ORDERED: SUCCINYLCHOLINE CHLORIDE 100 MG/5 ML SYR IV ONE (10:30)
[2021-10-07] MEDS ORDERED: ROPIVACAINE 5 MG/ML 30 ML VIAL ONE (10:30)
[2021-10-07] MEDS ORDERED: fentaNYL (PF) 50 MCG/ML 2 ML AMP ONE (10:30)
[2021-10-07] MEDS ORDERED: PHENYLEPHRINE-0.9% NACL SYG 1,000 MCG/10 ML SYRINGE ONE (10:30)
[2021-10-07] MEDS ORDERED: LIDOCAINE 1% INJ 10MG/ML (20 ML MDV) ONE (10:30)
[2021-10-07 12:26] VITALS: TEMP 96.8
--- NOTE | 2021-10-07 12:27 | P.OP ---
Date of Procedure: 10/07/21 Preoperative Diagnosis: Left shoulder impingement Postoperative Diagnosis: 1. Left shoulder rotator cuff tear 2. Left shoulder impingement 3. Left shoulder acromioclavicular joint osteoarthritis 4. Left shoulder partial long head biceps tendon tear Procedure(s) Performed: 1. Left shoulder arthroscopic rotator cuff repair 2. Left shoulder arthroscopic subacromial decompression 3. Left shoulder arthroscopic Harry procedure 4. Left shoulder arthroscopic biceps tenotomy Implants: 4Arthrex swivel lock anchors Anesthesia: GETA, regional (Interscalene block) Surgeon: Jere Clay Applications Support Specialist #1: Hay Guzmán Estimated Blood Loss (ml): 11 Pathology: none sent Condition: stable Disposition: PACU Indications for Procedure: 56-year-old patient seen with progressive left shoulder pain. After having treatment options discussed, she elected to proceed with arthroscopy Operative Findings: See description of procedure Description of Procedure: Patient underwent an interscalene block by department of anesthesia. The patient was then taken to the operative suite. The patient underwent a general anesthetic by the department of anesthesia. The patient was placed into a lateral position and secured. There was appropriate padding of the bony prominence. Left shoulder was then prepped and draped in normal sterile orthopedic fashion. We placed the extremity in 10 pounds of longitudinal traction. A posterior incision was now made for a posterior working portal site. The trocar and cannula were inserted into the glenohumeral joint. Arthroscopy was initiated. Spinal needle was now inserted anteriorly, to ascertain the anterior working portal site. An incision was now made in that area, a trocar was inserted followed by a probe. There was some superficial fraying of the superior labrum. There was hyperemia partial tearing long head biceps tendon. There were grade 1 chondromalacia changes of the humeral head. I performed an arthroscopic biceps tenotomy. I debrided out the superficial labral tear. The residual labrum was probed and found to be stable. Instruments now removed from glenohumeral joint. Utilizing the posterior working portal site, the trocar and cannula were inserted into the subacromial space. Arthroscopy initiated. I made an incision 2 fingerbreadths lateral to the acromion. I introduced my trocar followed by my ArthroCare ablator. I now began ablating thick subacromial bursal tissue, which exposed the undersurface of the anterior acromion. There was diminished subacromial space. There was a very prominent anterior acromion. A motorized bur was introduced and a subacromial decompression was performed. I also excised some osteophytes off the inferior aspect of the distal clavicle. The AC joint was visualized and noted to be fairly arthritic. The motorized bur was introduced in the anterior portal site and a Harry procedure was performed without difficulty, decompressing the AC joint nicely. I turned my attention to the rotator cuff. There was a 2.5-3 cm rotator cuff tear. I debrided the margins getting down to stable tendon tissue. I introduced my motorized bur and abraded the footprint area, getting some petechial bleeding. I noted a cystic area along the footprint. I debrided out the cyst. The defect in the footprint area measuring about 5 mm in diameter was stable around the periphery. I now made an accessory portal site off the lateral aspect of the acromion. I punched 2 holes medial for medial row fixation with the assistance of Jesu PALAFOX carefully tapping the punch with a mallet as I held the punch and the camera. I now introduced both anchors into the pre-punched holes and Jesu PALAFOX tapped them with the mallet as I held anchors and the camera. Jesu PALAFOX now screwed the anchors in place a while I held the anchor guide and camera. All 8 limbs of suture were now passed through good bites of rotator cuff tendon. I now punched 2 holes for lateral row fixation again I held the punch and camera while Jesu PALAFOX used a mallet to tap in the punch. We now passed sutures through both anchors and individually I introduced the anchors into the pre-pun ch holes I held the anchor guide in position with one hand holding the camera with the other hand while Jesu PALAFOX tensioned the sutures and screwed in the anchors one at a time. All residual suture limbs were now clipped. We had good compression of the tendon along the entire footprint. Instruments now removed from the portal sites. All portal sites were approximated with nylon suture. Sterile dressings were applied followed by a shoulder immobilizer. Hay PALAFOX assisted in this complex case. The patient was awakened, transferred to a bed, and taken to recovery in stable condition.
[2021-10-07 12:39] LABS: Glucose,Whole Blood 166 mg/dL (75-99)
[2021-10-07 12:47] VITALS: RESP 16
--- NOTE | 2021-10-07 13:27 | P.ANPRN ---
Procedure Note - Anesthesia - Nerve Block Performed Left Interscalene Time Out Performed: Yes (:24) Date of Procedure: 10/07/21 Procedure Start Time: Procedure Stop Time: :36 Location of Patient: PreOp Indication: Acute Post-Operative Pain, Requested by Surgeon (Dr Clay) Sedation Type: Sedate with meaningful contact maintained Preparation: Sterile Prep Position: Supine Catheter: None Needle Types: Pajunk Needle Gauge: Other (see comment) (22g) Ultrasound used to visualize needle placement: Yes Ultrasound used to observe medication spread: Yes Injectate: 0.5% Ropivacaine (see comment for volume) (20cc) Blood Aspirated: No Pain Paresthesia on Injection Noted: No Resistance on Injection: Normal Image Stored and Saved: Yes Events: Uneventful and Well Tolerated
[2021-10-07 14:04] VITALS: BP 130/65; PULSE 82
== END 2021-10-07 14:29 | disposition home or self-care (01) ==
LOC: OR 09:21
PROVIDERS: ATTEND Orthopaedic Surgery
DX: M75.102 Unspecified rotator cuff tear or rupture of left shoulder, not specified as traumatic (principal); E03.9 Hypothyroidism, unspecified; E11.9 Type 2 diabetes mellitus without complications; F17.210 Nicotine dependence, cigarettes, uncomplicated; K21.9 Gastro-esophageal reflux disease without esophagitis; Z79.84 Long term (current) use of oral hypoglycemic drugs; Z88.5 Allergy status to narcotic agent; Z90.710 Acquired absence of both cervix and uterus; M19.012 Primary osteoarthritis, left shoulder
CPT/HCPCS: 29824; 29826; 29827; 29828; 64415; 76942; C1713 ×2; C1894; J2250; J1100; J0690; J2405; J2001; J3010; J2795; J2370; J0330; J2704

== ENCOUNTER → 2022-02-24 | Outpatient (CLI) | payer BC ==
--- NOTE | 2022-02-25 05:27 | MR ---
EXAMINATION TYPE: MR knee RT wo con DATE OF EXAM: 02/24/2022 COMPARISON: None HISTORY: Right outer knee pain, painful kneecap, locking, and swelling for 1 year. Multiplanar multiecho imaging of the right knee without contrast. There is mild subcutaneous edema around the knee. The anterior posterior cruciate ligaments are intac t collateral ligaments are intact and the lateral meniscus is intact. There is vertical tear through the posterior horn of the medial meniscus. The anterior horn medial meniscus appears intact. There is knee joint effusion. No fracture seen. No evidence of focal bone destruction. No evidence of any sig nificant bone edema. Joint spaces are fairly normal. IMPRESSION: There are multiple vertical tears of the posterior horn medial meniscus. Knee joint effusion. No frac ture.
== END | disposition home or self-care (01) ==
LOC: RADMRIMAIN 17:35
PROVIDERS: ATTEND Orthopaedic Surgery
DX: M25.461 Effusion, right knee (principal); M23.321 Other meniscus derangements, posterior horn of medial meniscus, right knee

== ENCOUNTER → 2022-03-18 | Outpatient (CLI) | payer BC ==
[2022-03-18 23:17] LABS: Anion Gap 10.6 mmol/L (10.00-18.00); Carbon Dioxide 27.4 mmol/L (20.0-27.5); Potassium 4.7 mmol/L (3.5-5.5)
[2022-03-18 23:18] LABS: Basophils # (A) 0.04 X 10*3/uL (0.00-0.10); Basophils % (A) 0.4 %; Eosinophils # (A) 0.31 X 10*3/uL (0.04-0.35); HCT 40.8 % (37.2-46.3); HGB 12.7 g/dL (12.0-15.0); Immature Grans, Automated 0.4 %; Lymphocytes # (A) 3.36 X 10*3/uL (0.90-5.00); Lymphocytes % (A) 32.3 %; MCH 28.8 pg (27.0-32.0); MCHC 31.1 g/dL (32.0-37.0); MCV 92.5 fL (80.0-97.0); Mean Platelet Volume 9.8 fL (9.5-12.2); Monocytes # (A) 0.74 X 10*3/uL (0.20-1.00); Monocytes % (A) 7.1 %; NRBC Per 100 WBC 0 /100 WBCS (0.0-0.0); Neutrophils % (A) 56.8 %; Platelet Count 372 X 10*3/uL (140-440); RBC 4.41 X 10*6/uL (4.10-5.20); RDW 13.4 % (11.5-14.5); WBC 10.39 X 10*3/uL (4.50-10.00)
== END | disposition home or self-care (01) ==
LOC: LABPAT 15:35
PROVIDERS: ATTEND Orthopaedic Surgery
DX: Z01.812 Encounter for preprocedural laboratory examination (principal); M23.91 Unspecified internal derangement of right knee
CPT/HCPCS: 36415; 80051; 85025; 93005

== ENCOUNTER 2022-03-25 12:28 | Day surgery (SDC) | payer BC ==
[2022-03-24 09:09] VITALS: BMI 33.3
--- NOTE | 2022-03-24 14:30 | HP ---
HISTORY AND PHYSICAL DATE OF SURGERY: 03/25/2022 Gabby Garland is a 56-year-old patient seen progressive right knee pain. We discussed options for treatment. She elected to proceed with right knee arthroscopy. Consent was obtained. PAST MEDICAL HISTORY: Hypothyroidism, insulin-dependent diabetes. PAST SURGICAL HISTORY: section, hysterectomy, rotator cuff surgery, cervical fusion. DAILY MEDICATIONS: Levothyroxine, Naprosyn, amitriptyline, Januvia, metformin. ALLERGIES: MORPHINE, IODINE. SOCIAL HISTORY: She smokes cigarettes. PHYSICAL EVALUATION OF THE RIGHT KNEE: Her range of motion is negative 1/2 to 130. Tenderness along the medial joint line. Positive medial Keri's. Ligaments stable. Hip rotation without pain. Distal neurovascular exam intact. Radiographs of the right knee revealed mild osteoarthritic changes. MRI right knee revealed medial meniscal tear and effusion. IMPRESSION: 1. Internal derangement of right knee with medial meniscal tear. 2. Jeu-bngmina-jvouddrqe diabetes. 3. Hypothyroidism. PLAN: Right knee arthroscopy with partial medial meniscectomy and debridement. MMODL / IJN: [id number] /
[~2022-03-25 12:28] MED LIST changes: -HYDROmorphone 0.5 MG/0.5 ML SYRINGE IVP PRN; -LACTATED RINGERS 1,000 ML IV SCH; +METOCLOPRAMIDE 5 MG/ML 2 ML VIAL IVP PRN; -MIDAZOLAM 2 MG/2 ML VIAL IV PRN
[2022-03-25] MEDS: LACTATED RINGERS 1,000 ML IV SCH ×2 (12:53→14:13)
[2022-03-25 12:56] LABS: Glucose,Whole Blood 129 mg/dL (75-99)
[2022-03-25] MEDS ORDERED: SUCCINYLCHOLINE CHLORIDE 100 MG/5 ML SYR IV ONE (14:11)
[2022-03-25] MEDS ORDERED: LIDOCAINE 2% INJ 20 MG/ML (2 ML VIAL) ONE (14:11)
[2022-03-25] MEDS ORDERED: PROPOFOL 10 MG/ML 20 ML VIAL IV ONE (14:11)
[2022-03-25] MEDS ORDERED: fentaNYL (PF) 50 MCG/ML 2 ML AMP ONE (14:11)
[2022-03-25] MEDS ORDERED: MIDAZOLAM 2 MG/2 ML VIAL ONE (14:11)
[2022-03-25] MEDS ORDERED: KETOROLAC 15 MG/ML 1 ML VIAL ONE (14:11)
[2022-03-25] MEDS ORDERED: BUPIVACAINE (PF) 0.25% 30 ML VIAL SQ ONE ×2 (14:15→14:47)
--- NOTE | 2022-03-25 15:02 | P.OP ---
Date of Procedure: 03/25/22 Preoperative Diagnosis: Internal derangement right knee Postoperative Diagnosis: 1. Tear medial and lateral meniscus right knee 2. Reactive synovitis medial, lateral and suprapatellar compartments right knee Procedure(s) Performed: 1. Arthroscopic partial medial and lateral meniscectomy right knee 2. Arthroscopic partial synovectomy medial, lateral and suprapatellar compartments right knee Anesthesia: JOSEA, local Surgeon: Jere Clay Estimated Blood Loss (ml): 7 Pathology: none sent Condition: stable Disposition: PACU Indications for Procedure: 56-year-old patient seen with progressive right knee pain. After treatment options were discussed, she elected to proceed with arthroscopy. Operative Findings: See description of procedure Description of Procedure: Patient was taken to the operative suite. Patient underwent a general anesthetic by the department of anesthesia. Patient was given preoperative antibiotics. The right lower extremity was placed in a well-padded arthroscopic leg shea. The right leg was prepped and draped in the normal sterile orthopedic fashion. A lateral parapatellar and suprapatellar incision was made. Trochars were inserted. Arthroscopy was initiated. Suprapatellar pouch revealed diffuse thick reactive synovitis. The patellofemoral joint appeared to articulate congruently. There with grade 1 chondromalacia with no significant osteochondral tear present. The scope was guided into the medial gutter. No loose bodies or plica were identified. The scope was then guided into the medial compartment. A medial parapatellar incision was made. Trocar inserted followed by probe. There was a radial tear involving the posterior horn of the medial meniscus. There were grade 1 chondromalacia changes of the medial compartment. There was some thick reactive synovitis anteriorly. I performed a partial medial meniscectomy getting down to stable meniscal tissue. I performed a partial synovectomy decompressing the reactive synovitis. The residual meniscus was stable. There was good decompression was synovitis. Scope and probe were then guided into the intercondylar notch. Cruciates were identified, probed and found to be stable. The scope and probe were then guided into lateral compartment. There was a radial tear mid body lateral meniscus. There was no chondromalacia present. There was some reactive synovitis anteriorly. I performed a partial lateral meniscectomy getting down to stable meniscal tissue. I performed a partial synovectomy. Shaver was now removed. The residual meniscus was stable. There was good decompression of the synovitis. The scope was in guided back into the suprapatellar compartment. I introduced a motorized shaver into the suprapatellar compartment. I debrided some piecemeal fragments of meniscus that I encountered. I performed a partial synovectomy. Shaver was removed. There was good decompression of the synovitis. I took one more look around the entire knee, no residual debris. Instruments were now removed from the joint. The joint was infiltrated with .25% Marcaine. Steri-Strips were applied to the portal sites. Sterile dressings were applied. The patient was placed into a ALLIE hose. No tourniquet was utilized. The patient was awakened, transferred to a bed and taken to recovery stable satisfactory condition.
[2022-03-25 15:21] VITALS: TEMP 98
[2022-03-25 15:52] LABS: Glucose,Whole Blood 173 mg/dL (75-99)
[2022-03-25 16:34] VITALS: RESP 16
[2022-03-25] MEDS ORDERED: HYDROcodone/APAP 5-325MG 1 EACH TAB ONE (16:51)
[2022-03-25 16:56] VITALS: BP 104/57; PULSE 85
== END 2022-03-25 17:21 | disposition home or self-care (01) ==
LOC: OR 12:28
PROVIDERS: ATTEND Orthopaedic Surgery
DX: S83.241A Other tear of medial meniscus, current injury, right knee, initial encounter (principal); E03.9 Hypothyroidism, unspecified; E11.9 Type 2 diabetes mellitus without complications; F17.210 Nicotine dependence, cigarettes, uncomplicated; S83.281A Other tear of lateral meniscus, current injury, right knee, initial encounter; Z79.4 Long term (current) use of insulin; Z88.5 Allergy status to narcotic agent; Z88.8 Allergy status to other drugs, medicaments and biological substances; Z90.710 Acquired absence of both cervix and uterus; Z79.899 Other long term (current) drug therapy
CPT/HCPCS: 29880; J2250; J1100; J0690; J2405; J3010; J1885; J0330; J2704; J2001

== ENCOUNTER → 2022-11-03 | Outpatient (CLI) | payer BC ==
--- NOTE | 2022-11-04 14:58 | BD ---
EXAMINATION TYPE: Axial Bone Density DATE OF EXAM: 11/03/2022 COMPARISON: NONE CLINICAL HISTORY: 57 years year old Female. ICD-10 CODE: Z780, N951 - POST ALVIN Height: 5 FT 5 IN Weight: 205 FRAX RISK QUESTIONS: Alcohol (3 or more units per day): NO Family History (Parent hip fracture): YES Glucocorticoids (More than 3mos): NO (Ex: prednisone, prednisolone, methylprednisolone, dexamethasone, and hydrocortisone). History of Fracture in Adulthood: NO Secondary Osteoporosis: 1. Type 1 Diabetes:TYPE 2 2. Hyperthyroidism: NODULES 3. Menopause before 45: NO 4. Malnutrition: NO 5. Chronic liver disease: NO Rheumatoid Arthritis: NO Current Tobacco Use: YES RISK FACTORS HISTORY OF: Surgery to Spine/Hip(right/left)/Wrist (right/left): CSPINE When: 2003 Family History of Osteoporosis: YES Active: YES Diet low in dairy products/other sources of calcium: NO Postmenopausal woman: YES Take estrogen and/or progesterone medications: NO Lost more than 2 inches in height since high school: NO Frequent falls: YES Poor Health: GOOD Hyperparathyroidism: NO Adrenal Insufficiency: NO MEDICATIONS: Thyroid Medications: YES Which medication: LEVOTHYROXINE How Lon YEARS Additional Medications: LEVOTHYROXINE, ANTI DEPRESSANT ,METFORMIN, JANUVIA, EYE VIT, PREVACID, MUSCLE RELAXER, Additional History: EXAM MEASUREMENTS: Bone mineral densitometry was performed using the Compute System. Bone mineral density as measured about the Lumbar spine is: ----- L1-L4(G/cm2): 1.720 T Score Values are as follows: ----- L1: 3.1 ----- L2: 5.7 ----- L3: 6.3 ----- L4: 2.9 ----- L1-L4: 4.5 Bone mineral density has: INCREASED 11.5 % since study of: 2017 Bone mineral density about the R hip (g/cm2): 0.877 Bone mineral density about the L hip (g/cm2): 1.005 T Score values are as follows: -----R Neck: -1.2 -----L Neck: -0.2 -----R Total: 0.0 -----L Total: 0.9 Bone mineral density has: DECREASED -4.1 % since study of: 2017 FRAX%s: The graph provided illustrates a 6.7 % chance for a major osteoporotic fx and a 0.7 % chance for the hips probability for fx in 10 years time. IMPRESSION: Osteopenia (T Score between -2.5 and -1). There is slightly increased risk of fracture and the patient may be considered for treatment. Re-Screen 2-5 years. NOTE: T-SCORE=SD OF THE YOUNG ADULT MEAN.
--- NOTE | 2022-11-04 18:33 | MM ---
Reason for Exam: Screening (asymptomatic). Last mammogram was performed 1 year(s) and 2 month(s) ago. Patient History: Menarche at age 11. First Full-Term at age 20. Left ovary removed at age 53. Right ovary removed at age 53. Hysterectomy at age 37. Postmenopausal. Patient has history of breast feeding. 11/23/2017, High risk Core Biopsy on the left side. Paternal aunt had breast cancer, age 40. Maternal aunt had breast cancer, age 42. Risk Values: Maria A 5 year model risk: 1.5%. NCI Lifetime model risk: 7.9%. Prior Study Comparison: 11/16/2017 Left Diagnostic Mammogram, [facility]. 06/20/2018 Left Diagnostic Mammogram, [facility]. 01/12/2019 Bilateral Diagnostic Mammogram, [facility]. 07/31/2020 Bilateral Diagnostic Mammogram, [facility]. 09/14/2021 Bilateral Screening Mammogram, [facility]. Tissue Density: The breast tissue is heterogeneously dense. This may lower the sensitivity of mammography. Findings: Analyzed By CAD. Bilateral chronic nodularity. Microclip upper outer quadrant left breast from prior biopsy. Calcifications centrally right breast. No significant change from higher exams. Overall Assessment: Benign, BI-RAD 2 Management: Screening Mammogram of both breasts in 1 year. 1. Patient should continue monthly self breast exams. 2. A clinical breast exam by your physician is recommended on an annual basis. 3. This exam should not preclude additional follow-up of suspicious palpable abnormalities. Electronically signed and approved by: Dex Alexander M.D. Radiologist
== END | disposition home or self-care (01) ==
LOC: RADBDWWP 12:27
PROVIDERS: ATTEND Obstetrics & Gynecology
DX: Z12.31 Encounter for screening mammogram for malignant neoplasm of breast (principal); M85.871 Other specified disorders of bone density and structure, right ankle and foot; Z80.3 Family history of malignant neoplasm of breast; Z78.0 Asymptomatic menopausal state; Z90.721 Acquired absence of ovaries, unilateral
CPT/HCPCS: 77067; 77080

== ENCOUNTER → 2022-11-08 | Outpatient (CLI) | payer BC ==
--- NOTE | 2022-11-08 18:26 | CTL ---
EXAMINATION TYPE: CT Low Dose Lung DATE OF EXAM ORDERED: 11/08/2022 HISTORY: Long-term tobacco use. Lung cancer screening CT DLP: 84.[address] CTDI: 2.4 mGy Automated exposure control for dose reduction was used. SCREENING VISIT: Baseline COMPARISON: None TECHNIQUE: Low dose computed tomography scan was performed through the chest at 1 mm thick sections a nd reconstructed images in multiple planes at 1 mm and [address] DIAGNOSTIC QUALITY: Satisfactory FINDINGS: LUNG NODULES: Present, detailed below: Multiple scattered calcified nodules or benign granulomas, tamela roximately 20-30 are noted. No greater than 5 mm noncalcified pulmonary nodules. LUNGS: COPD: Severity: Mild Fibrosis: Severity: Mild right middle lobe Lymph nodes: No greater than 1 cm Other findings: None RIGHT PLEURAL SPACE: Effusion: None Calcification: None Thickening: None Pneumothorax: None LEFT PLEURAL SPACE: Effusion: None Calcification: None Thickening: None Pneumothorax: None HEART: Heart Size: Normal Coronary Calcification: None Pericardial Effusion: None OTHER FINDINGS: Upper abdomen: Liver is heterogeneously hypodense consistent with fatty infiltration Bony thorax: There is S-shaped scoliotic curvature Supraclavicular region: None Other: None IMPRESSION: Evidence of old granulomatous disease. No suspicious noncalcified pulmonary nodules. CT LUNG RAD AND CT CHEST RECOMMENDATION: Lung-Rad 2 Benign Appearance or Behavior: Continue annual sc reening with LDCT in 12 months. S Modifier (other clinically significant findings): None
== END | disposition home or self-care (01) ==
LOC: RADCTMAIN 15:47
PROVIDERS: ATTEND Internal Medicine Critical Care Medicine
DX: Z12.2 Encounter for screening for malignant neoplasm of respiratory organs (principal); D71 Functional disorders of polymorphonuclear neutrophils; Z87.891 Personal history of nicotine dependence
CPT/HCPCS: 71271

== ENCOUNTER → 2024-02-27 | Outpatient (CLI) | payer BC | END | disposition home or self-care (01) | LOC: RADUSWWP 09:59 | PROVIDERS: ATTEND Family Medicine | DX: Z53.9 Procedure and treatment not carried out, unspecified reason (principal) ==

== ENCOUNTER → 2024-02-27 | Outpatient (CLI) | payer BC | END | disposition home or self-care (01) | LOC: RADMAMWWP 10:02 | PROVIDERS: ATTEND Family Medicine | DX: Z53.9 Procedure and treatment not carried out, unspecified reason (principal) ==

== ENCOUNTER → 2024-02-27 | Outpatient (CLI) | payer BC ==
--- NOTE | 2024-02-27 23:05 | US ---
EXAMINATION TYPE: US thyroid st tissue head/neck DATE OF EXAM: 02/27/2024 COMPARISON: US - 10/18/2014 CLINICAL INDICATION: Female, 58 years old with history of E04.1 THYROID NODULE; Patient denies any si gns or symptoms or changes from prior exam GLAND SIZE: Right Lobe: 5.9 x 1.5 x 1.7 cm Overall Parenchyma: homogeneous Left Lobe: 5.3 x 1.9 x 1.8 cm Overall Parenchyma: homogeneous Isthmus Thickness: 0.2 cm NODULES RIGHT: # of nodules measured on right: 3 1. 0.7 X 0.6 x 0.8 cm, mid lateral, mixed cystic and solid, hypoechoic nodule, which is wider than tall, with smooth margins, without echogenic foci. Prior size: 0.6 x 0.3 x 0.6 cm 2. 0.8 X 0.7 x 0.7 cm, lower mid, solid or almost completely solid, hypoechoic nodule, which is wid er than tall, with smooth margins, without echogenic foci. Prior size: 0.5 x 0.4 x 0.5 cm 3. 0.6 X 0.4 x 0.5 cm, lower lateral, solid or almost completely solid, hypoechoic nodule, which is wider than tall, with ill-defined margins, without echogenic foci. Prior size: 0.5 x 0.3 x 0.4 cm LEFT: # of nodules measured on left: 1 1. 0.9 X 0.7 x 0.7 cm, upper lateral, mixed cystic and solid, isoechoic nodule, which is wider than tall, with smooth margins, without echogenic foci. Prior size: 0.7 x 0.3 x 0.5 cm ISTHMUS: # of nodules measured in the isthmus: 0 Bilateral neck scanned, no evidence of lymphadenopathy. IMPRESSION: No suspicious enlarged nodules. Consider follow-up in one year
--- NOTE | 2024-02-28 08:44 | MM ---
Reason for Exam: Screening (asymptomatic). Last mammogram was performed 1 year(s) and 4 month(s) ago. Patient History: Menarche at age 11. First Full-Term at age 20. Left ovary removed at age 53. Right ovary removed at age 53. Hysterectomy at age 37. Postmenopausal. Patient has history of breast feeding. 11/23/2017, High risk Core Biopsy on the left side. Paternal aunt had breast cancer, age 40. Maternal aunt had breast cancer, age 42. Risk Values: Maria A 5 year model risk: 1.5%. NCI Lifetime model risk: 7.7%. Prior Study Comparison: 07/31/2020 Bilateral Diagnostic Mammogram, [facility]. 09/14/2021 Bilateral Screening Mammogram, [facility]. 11/03/2022 Bilateral MG screening mammo w CAD, [facility]. Tissue Density: The breasts are heterogeneously dense, which may obscure small masses. Findings: Analyzed By CAD. There is no suspicious group of microcalcifications or new suspicious mass in either breast. Overall Assessment: Benign, BI-RAD 2 Management: Screening Mammogram of both breasts in 1 year. . Patient should continue monthly self-breast exams. A clinical breast exam by your physician is recommended on an annual basis. This exam should not preclude additional follow-up of suspicious palpable abnormalities. Note on Maria A scores and lifetime risk: 1. A Maria A score greater than 3% is considered moderate risk. If this is the case, consider specialist referral to assess eligibility for a risk reducing agent. 2. If overall lifetime risk for the development of breast cancer is 20% or higher, the patient may qualify for future screening with alternating mammogram and breast MRI. Electronically signed and approved by: Wisam Kunz M.D. Radiologis
--- NOTE | 2024-02-29 17:57 | BD ---
EXAMINATION TYPE: Axial Bone Density DATE OF EXAM: 02/27/2024 CLINICAL HISTORY: 58 years old Female. ICD-10 CODE: M81.0 AGE-RELATED OSTEOPOROSIS W/O CURRENT PATHO LO Height: 64.5 Weight: 195.0 FRAX RISK QUESTIONS: Alcohol (3 or more units per day): no Family History (Parent hip fracture): mother Glucocorticoids (More than 3mos): no History of Fracture in Adulthood: no Secondary Osteoporosis: 1. Type 1 Diabetes: no 2. Hyperthyroidism: no 3. Menopause before 45: no 4. Malnutrition: no 5. Chronic liver disease: no Rheumatoid Arthritis: no Current Tobacco Use: yes RISK FACTORS HISTORY OF: Hip Fracture (Right/Left): no Spine Fracture: no History of Wrist Fracture: no Surgery to Spine/Hip(right/left)/Wrist (right/left): no MEDICATIONS: Thyroid Medications: Levothyroxine How Long: past 10 years Osteoporosis Medications: no EXAM MEASUREMENTS: Bone mineral densitometry was performed using the [employer] System. Bone mineral density as measured about the Lumbar spine is: ----- L1-L4(G/cm2): 1.681 T Score Values are as follows: ----- L1: 2.4 ----- L2: 5.7 ----- L3: 5.5 ----- L4: 3.0 ----- L1-L4: 4.2 Z Score Values are as follows: ----- L1: 2.9 ----- L2: 6.2 ----- L3: 6.0 ----- L4: 3.5 ----- L1-L4: 4.6 Bone mineral density has: decreased -2.3 % since study of: 11/03/2022 Bone mineral density about the R hip (g/cm2): 1.023 Bone mineral density about the L hip (g/cm2): 1.1128 T Score values are as follows: -----R Neck: -0.8 -----L Neck: -0.4 -----R Total: 0.1 -----L Total: 1.0 Z Score values are as follows: -----R Neck: 0.0 -----L Neck: 0.4 -----R Total: 0.5 -----L Total: 1.4 Bone mineral density has: increased 1.0 % since study of: 11/03/2022 FRAX%s: The graph provided illustrates a 6.5% chance for a major osteoporotic fx and a 0.5% chance fo r the hips probability for fx in 10 years time. IMPRESSION: Normal (Values between +1 and -1 indicate normal bone mass). Consider repeating this study in 5 year s or sooner if there is some new clinical indication. NOTE: T-SCORE=SD OF THE YOUNG ADULT MEAN.
== END | disposition home or self-care (01) ==
LOC: RADBDWWP 10:03
PROVIDERS: ATTEND Family Medicine
DX: Z12.31 Encounter for screening mammogram for malignant neoplasm of breast (principal); M81.0 Age-related osteoporosis without current pathological fracture; E04.2 Nontoxic multinodular goiter; Z80.3 Family history of malignant neoplasm of breast; Z78.0 Asymptomatic menopausal state
CPT/HCPCS: 76536; 77063; 77067; 77080

== ENCOUNTER → 2024-04-10 | Outpatient (CLI) | payer BC | END | disposition home or self-care (01) | LOC: RADUSWWP 11:56 | PROVIDERS: ATTEND Surgery Plastic and Reconstructive Surgery | DX: Z53.9 Procedure and treatment not carried out, unspecified reason (principal) ==

== ENCOUNTER 2024-05-02 06:28 | Day surgery (SDC) | payer BC ==
[2024-04-30 13:26] VITALS: BMI 33.1
[2024-05-02 06:55] VITALS: TEMP 97.6
[2024-05-02] MEDS: LACTATED RINGERS 1,000 ML IV SCH (07:01)
[2024-05-02 07:07] LABS: Glucose,Whole Blood 206 mg/dL (70-110)
[2024-05-02] MEDS ORDERED: PROPOFOL 10 MG/ML 20 ML VIAL IV ONE (07:35)
[2024-05-02] MEDS ORDERED: LIDOCAINE 1% INJ 10MG/ML (20 ML MDV) ONE (07:35)
--- NOTE | 2024-05-02 07:52 | P.GSHP ---
History of Present Illness H&P Date: 05/02/24 CHIEF COMPLAINT: GERD HISTORY OF PRESENT ILLNESS: The patient is a 59-year-old female who presents reports gastroesophageal reflux disease. Upper endoscopy was offered for further evaluation and management. PAST MEDICAL HISTORY: Please see list. PAST SURGICAL HISTORY: Please see list. MEDICATIONS: Please see list. ALLERGIES: Please see list. SOCIAL HISTORY: No illicit drug use FAMILY HISTORY: No reports of Crohn disease or ulcerative colitis. REVIEW OF ORGAN SYSTEMS: CONSTITUTIONAL: No reports of fevers or chills. GI: Denies any blood in stools or constipation. PHYSICAL EXAM: VITAL SIGNS: Stable GENERAL: Well-developed and pleasant in no acute distress. HEENT: No scleral icterus. Extraocular movements grossly intact. Moist buccal mucosa. NECK: Supple without lymphadenopathy. CHEST: Unlabored respirations. Equal bilateral excursions. CARDIOVASCULAR: Regular rate and rhythm. Distal 2+ pulses. ABDOMEN: Soft, nondistended. MUSCULOSKELETAL: No clubbing, cyanosis, or edema. ASSESSMENT: 1. Gastroesophageal reflux disease PLAN: 1. Recommend proceeding with an upper endoscopy Past Medical History Past Medical History: Diabetes Mellitus, Eye Disorder, GERD/Reflux, Osteoarthritis (OA), Skin Disorder, Sleep Apnea/CPAP/BIPAP, Thyroid Disorder Additional Past Medical History / Comment(s): eczema, hx. heart murmur as a child, hiatal hernia, uses CPAP, beginnings of macular degeneration History of Any Multi-Drug Resistant Organisms: None Reported Past Surgical History: Back Surgery, Section, Cholecystectomy, Hysterectomy, Orthopedic Surgery Additional Past Surgical History / Comment(s): neck fusion, right shoulder surg. x2, right knee sx, rk surgery bilateral eyes, colonoscopy , egd Past Anesthesia/Blood Transfusion Reactions: No Reported Reaction Additional Past Anesthesia/Blood Transfusion Reaction / Comment(s): no blood transfusion Past Psychological History: Depression Smoking Status: Current every day smoker Past Alcohol Use History: Rare Additional Past Alcohol Use History / Comment(s): SMOKES < 1PPD SINCE AGE 12 Past Drug Use History: Marijuana Additional Drug Use History / Comment(s): gummies knows to refrain 24 hours prior to procedure - Past Family History Mother Family Medical History: Cancer Additional Family Medical History / Comment(s): skin Medications and Allergies Home Medications Medication Instructions Recorded Confirmed Type Levothyroxine Sodium [Synthroid] 50 mcg PO DAILY 04/23/15 05/02/24 History Venlafaxine HCl [Venlafaxine HCl 37.5 mg PO DAILY 04/23/15 05/02/24 History ER] Naproxen 500 mg PO BID 11/16/17 05/02/24 History Lansoprazole [Prevacid] 30 mg PO HS 10/06/21 05/02/24 History Vit C/E/Zn/Coppr/Lutein/Zeaxan 1 each PO DAILY 10/06/21 05/02/24 History [Preservision Areds 2 Softgel] metFORMIN HCL [Glucophage] 1,000 mg PO BID 10/06/21 05/02/24 History Allergies Allergy/AdvReac Type Severity Reaction Status Date / Time bee pollen Allergy Anaphylaxis Verified 05/02/24 06:47 Iodinated Contrast Media Allergy Rash/Hives Verified 05/02/24 06:47 [Iodinated Contrast Media - SWELLING IV Dye] OF THROAT morphine Allergy Anaphylaxis Verified 05/02/24 06:47 nickel Allergy Rash/Hives Verified 05/02/24 06:47 Pepper Allergy Unknown Verified 05/02/24 06:47 shellfish derived [Shellfish] Allergy Dyspnea, Verified 05/02/24 06:47 SWELLING OF THROAT tomato Allergy Unknown Verified 05/02/24 06:47 adhesive AdvReac skin Verified 05/02/24 06:47 irritation, blisters Egg Derived AdvReac Abdominal Verified 05/02/24 06:47 Pain Surgical - Exam Vital Signs Temp Pulse Resp BP Pulse Ox 97.6 F 79 16 125/59 95 05/02/24 06:49 05/02/24 06:49 05/02/24 06:49 05/02/24 06:49 05/02/24 06:49 Results - Labs Abnormal Lab Results - Last 24 Hours (Table) 05/02/24 Range/Units 07:05 POC Glucose (mg/dL) 206 H (70-110) mg/dL
--- NOTE | 2024-05-02 07:56 | P.PCN ---
Date of Procedure: 05/02/24 Description of Procedure: PREOPERATIVE DIAGNOSIS: Gastroesophageal reflux disease. Diaphragmatic hiatal hernia POSTOPERATIVE DIAGNOSIS: Gastroesophageal reflux disease. Gastritis. Diaphragmatic hiatal hernia OPERATION: Esophagogastroduodenoscopy with biopsies along esophagus, antrum and duodenum SURGEON: Maricarmen Díaz MD ANESTHESIA: MAC. INDICATIONS: The patient is a 59-year-old female who presents with middle hernia and reflux disease. Benefits and risks of the procedure were described. Informed consent was obtained. DESCRIPTION: The patient was brought into the endoscopy suite and laid in the left lateral decubitus position. An Olympus gastroscope was passed along the posterior oropharynx down to the distal esophagus where the squamocolumnar junction was encountered at 35 cm from the incisors. The stomach was entered and no bile reflux was found. Additional findings are listed below. Biopsies with cold forceps were obtained of the antrum. The first through third portion of the duodenum was examined. Retroflexion of the scope confirmed Hill grade 2 lower esophageal valve. The squamocolumnar junction demonstrated LA grade A erosive esophagitis. The stomach was desufflated. The patient tolerated the procedure well. FINDINGS: Squamocolumnar junction 35 cm from the incisors. Diaphragmatic hiatus at 37 cm. Hiatal hernia, 2 cm Hill grade 2 lower esophageal valve. LA grade A erosive esophagitis. Biopsies obtained Biopsies obtained of the duodenum. Chronic gastritis with biopsies obtained. RECOMMENDATIONS: Upper endoscopy as needed. Plan - Discharge Summary Discharge Rx Participant: No New Discharge Prescriptions: Continue Venlafaxine HCl [Venlafaxine HCl ER] 37.5 mg PO DAILY Levothyroxine Sodium [Synthroid] 50 mcg PO DAILY Naproxen 500 mg PO BID metFORMIN HCL [Glucophage] 1,000 mg PO BID Lansoprazole [Prevacid] 30 mg PO HS Vit C/E/Zn/Coppr/Lutein/Zeaxan [Preservision Areds 2 Softgel] 1 each PO DAILY Discharge Medication List Levothyroxine Sodium [Synthroid] 50 mcg PO DAILY 04/23/15 [History] Venlafaxine HCl [Venlafaxine HCl ER] 37.5 mg PO DAILY 04/23/15 [History] Naproxen 500 mg PO BID 11/16/17 [History] Lansoprazole [Prevacid] 30 mg PO HS 10/06/21 [History] Vit C/E/Zn/Coppr/Lutein/Zeaxan [Preservision Areds 2 Softgel] 1 each PO DAILY 10/06/21 [History] metFORMIN HCL [Glucophage] 1,000 mg PO BID 10/06/21 [History] Follow up Appointment(s)/Referral(s): Maricarmen Díaz MD [STAFF PHYSICIAN] - 06/05/24 1:45 pm Patient Instructions/Handouts: Hiatal Hernia (DC) Discharge Disposition: HOME SELF-CARE
[2024-05-02 08:32] VITALS: BP 110/61; PULSE 74; RESP 18
== END 2024-05-02 08:51 | disposition home or self-care (01) ==
LOC: ORWHC2ENDO 06:28
PROVIDERS: ATTEND Surgery Plastic and Reconstructive Surgery
DX: D72.820 Lymphocytosis (symptomatic) (principal); K31.9 Disease of stomach and duodenum, unspecified; K44.9 Diaphragmatic hernia without obstruction or gangrene; K21.00 Gastro-esophageal reflux disease with esophagitis, without bleeding; M19.90 Unspecified osteoarthritis, unspecified site; F32.A Depression, unspecified; G47.30 Sleep apnea, unspecified; E11.9 Type 2 diabetes mellitus without complications; F17.210 Nicotine dependence, cigarettes, uncomplicated; Z79.84 Long term (current) use of oral hypoglycemic drugs; Z79.890 Hormone replacement therapy; Z79.899 Other long term (current) drug therapy; Z90.49 Acquired absence of other specified parts of digestive tract; Z91.030 Bee allergy status; Z90.710 Acquired absence of both cervix and uterus; Z91.041 Radiographic dye allergy status
CPT/HCPCS: 88305; 43239; J2001; J2704; 74220

== ENCOUNTER → 2024-05-03 | Outpatient (CLI) | payer BC ==
--- NOTE | 2024-05-03 16:07 | CTL ---
EXAMINATION TYPE: CT Low Dose Lung DATE OF EXAM ORDERED: 05/03/2024 History: Lung cancer screening CT DLP: 87.[address] CTDI: 2.4 mGy Automated exposure control for dose reduction was used. Comparison: 11/08/2022 TECHNIQUE: Low dose computed tomography scan was performed through the chest at 1 mm thick sections a nd reconstructed images in multiple planes at 1 mm and [address] DIAGNOSTIC QUALITY: Satisfactory FINDINGS: There are multiple innumerable scattered calcified granulomas which are stable. There is a 5.5 mm noncalcified subpleural parenchymal nodule in the right upper lobe which is stable. There is no new or suspicious lung mass or nodule. There is no abnormal airspace/consolidative density or abnormal interstitial density. There is no pleural effusion, pleural thickening or pneumothorax. There is no mediastinal, hilar or axillary adenopathy. The great vessels chest are normal. Limited scanning through the upper abdomen reveals no gross abnormality. No focal osseous lesions are seen. IMPRESSION: 1. BI-RADS Category 2 benign findings. Continue routine screening at yearly intervals. 2. No acute cardiopulmonary disease. 3. Sequela of granulomatous disease.
== END | disposition home or self-care (01) ==
LOC: RADCTMAIN 15:20
PROVIDERS: ATTEND Internal Medicine Critical Care Medicine
DX: Z12.2 Encounter for screening for malignant neoplasm of respiratory organs (principal); J84.10 Pulmonary fibrosis, unspecified; F17.210 Nicotine dependence, cigarettes, uncomplicated
CPT/HCPCS: 71271

== ENCOUNTER → 2025-06-17 | Outpatient (CLI) | payer BC ==
--- NOTE | 2025-06-21 01:12 | CTL ---
EXAMINATION TYPE: CT Low Dose Lung DATE OF EXAM: 06/17/2025 11:53 AM COMPARISON: None. SCREENING VISIT: Initial CT DIAGNOSTIC QUALITY: Satisfactory CLINICAL INDICATION: Female, 60 years old with history of Z12.2, F17.210 NICOTINE DEPENDENCE, Curent smoker 1/2 ppd x 40 years, Lung cancer screening, History of tobacco use. TECHNIQUE: Low dose computed tomography scan was performed through the chest at 1 mm thick sections a nd reconstructed images in the coronal plane at 1 mm thick sections. Contrast used: mL of , (none if empty) Oral contrast used: (none if empty) CT DLP: 88.4 mGycm, Automated exposure control for dose reduction was used. CT CTDI: 2.6 mGy, Automated exposure control for dose reduction was used. FINDINGS: LUNG NODULES: Present, detailed below: 1. Extensive calcified granulomas throughout the bilateral. 2. There may be a 0.4 cm nodule right mid lung. Present previously, stable. Previous peripheral right lung punctate nodule not identified. LUNGS: COPD: Severity: None Fibrosis: Severity: None Lymph nodes: None Other findings: None RIGHT PLEURAL SPACE: Effusion: None Calcification: None Thickening: None Pneumothorax: None LEFT PLEURAL SPACE: Effusion: None Calcification: None Thickening: None Pneumothorax: None HEART: Other: Ascending thoracic aorta at the level the main pulmonary artery measures 3.0 cm. The main pul monary artery at the bifurcation measures 2.5 cm. Heart Size: Normal Coronary calcification: No significant coronary artery calcifications. Pericardial effusion: None OTHER FINDINGS: Upper abdomen: Normal Bony thorax: Normal Supraclavicular region: Normal IMPRESSION: 1. No suspicious nodules. 2. Stable nodule and multiple benign-appearing calcified granuloma. FOLLOW UP CT CHEST RECOMMENDATION: Follow-up low-dose CT chest one year CT LUNG RAD: Lung-Rad 2 Benign Appearance or Behavior [facility], Workstation: [id number], 06/21/2025 1:10 AM
== END | disposition home or self-care (01) ==
LOC: RADCTMAIN 11:22
PROVIDERS: ATTEND Internal Medicine Critical Care Medicine
DX: Z12.2 Encounter for screening for malignant neoplasm of respiratory organs (principal); F17.210 Nicotine dependence, cigarettes, uncomplicated; J84.10 Pulmonary fibrosis, unspecified; R91.1 Solitary pulmonary nodule
CPT/HCPCS: 71271

== ENCOUNTER → 2025-06-18 | Outpatient (CLI) | payer BC ==
--- NOTE | 2025-06-18 14:42 | XR ---
EXAMINATION TYPE: XR lumbar spine 2 or 3V DATE OF EXAM: 06/18/2025 2:36 PM COMPARISON: None. CLINICAL INDICATION: Female, 60 years old with history of M54.5 OA PAIN, pain TECHNIQUE: 3 view(s) obtained. FINDINGS: Scoliosis is present with convexity to the right centered at L3. There are 5 lumbar-type vertebral roseann dies. Pedicles are intact. Disc space narrowing is present L2-3 and to a lesser degree L1-2 and L3-4. Vertebral body heights are preserved. No spondylolisthesis is evident. Some spondylosis is present L 2-3. IMPRESSION: 1. Scoliosis with degenerative disc changes mid lumbar spine [facility], Workstation: [facility], 06/18/2025 2:40 PM
== END | disposition home or self-care (01) ==
LOC: RADXRMAIN 14:20
PROVIDERS: ATTEND Family Medicine
DX: M51.360 Other intervertebral disc degeneration, lumbar region with discogenic back pain only (principal); M41.86 Other forms of scoliosis, lumbar region
CPT/HCPCS: 72100

== ENCOUNTER → 2025-06-28 | Outpatient (CLI) | payer BC ==
--- NOTE | 2025-06-28 20:24 | MM ---
Reason for Exam: Screening (asymptomatic). Last mammogram was performed 1 year(s) and 4 month(s) ago. Patient History: Menarche at age 11. First Full-Term at age 20. Left ovary removed at age 53. Right ovary removed at age 53. Hysterectomy at age 37. Postmenopausal. Patient has history of breast feeding. 11/23/2017, High risk Core Biopsy on the left side. Paternal aunt had breast cancer, age 40. Maternal aunt had breast cancer, age 42. Risk Values: Maria A 5 year model risk: 1.6%. NCI Lifetime model risk: 7.3%. Prior Study Comparison: 09/14/2021 Bilateral Screening Mammogram, [facility]. 11/03/2022 Bilateral MG screening mammo w CAD, [facility]. 02/27/2024 Bilateral MG 3D screening mammo w/cad, [facility]. Tissue Density: There are scattered areas of fibroglandular density. Findings: Analyzed By CAD. Focal asymmetry upper-outer quadrant right breast middle depth is more defined. This may represent superimposition shadow but further evaluation is recommended. On the left, lateral asymmetric density middle to posterior depth appears more defined. Further evaluation recommended. Microclip left breast from prior biopsy. Otherwise, no significant change. Overall Assessment: Incomplete: need additional imaging evaluation, BI-RAD 0 Management: Diagnostic Mammogram of both breasts. Include 3-D CC rolled on the left. [facility] will attempt to contact patient to return for supplemental views and ultrasound if indicated. [facility], , 06/28/2025 8:21 PM. Electronically signed and approved by: Dex Alexander M.D. Radiologist
== END | disposition home or self-care (01) ==
LOC: RADMAMWWP 14:32
PROVIDERS: ATTEND Family Medicine
DX: Z12.31 Encounter for screening mammogram for malignant neoplasm of breast (principal); R92.323 Mammographic fibroglandular density, bilateral breasts; Z78.0 Asymptomatic menopausal state; Z80.3 Family history of malignant neoplasm of breast
CPT/HCPCS: 77067